=== PATIENT | female | born 2000 ===

== ENCOUNTER 2022-03-09 16:40 | Outpatient (CLI) | payer OTHER ==
[~2022-03-09] VITALS: Ht 160 cm; Wt 74.6 kg
[2022-03-09 16:58] VITALS: BP 122/65
[2022-03-09] MEDS ORDERED: ACET-897 PO (17:03)
[2022-03-09] MEDS ORDERED: TUMS750C5 PO (17:03)
[2022-03-09] MEDS ORDERED: ZYRTTAB8 PO (17:03)
[2022-03-09] MEDS ORDERED: PRENTAB9 PO (17:03)
[2022-03-09 18:03] VITALS: BP 109/60
[2022-03-09] MEDS ORDERED: FLUCONAZOLE 50MG TABLET PO ONE (18:05)
[2022-03-09 18:32] VITALS: BP 117/59
[2022-03-09 20:02] LABS: GC DNA AMPLIFICATION NEGATIVE (NEGATIVE)
== END 2022-03-09 18:30 | disposition home or self-care (01) ==
LOC: M LDO 16:40
PROVIDERS: ATTEND Obstetrics & Gynecology
DX: O23.593 Infection of other part of genital tract in pregnancy, third trimester (principal); Z3A.29 29 weeks gestation of pregnancy; Z88.0 Allergy status to penicillin; Z88.1 Allergy status to other antibiotic agents; Z91.013 Allergy to seafood; Z91.018 Allergy to other foods
CPT/HCPCS: 59025; 76815; 87810; 87850; G0378; G0463

== ENCOUNTER 2022-04-16 12:00 | Outpatient (CLI) | payer OTHER ==
[~2022-04-16] VITALS: Ht 162.6 cm; Wt 76.3 kg
[~2022-04-16 12:00] MED LIST: ACET-897 PO; PRENTAB9 PO; TUMS750C5 PO; ZYRTTAB8 PO
[2022-04-16 12:26] VITALS: BP 116/72
[2022-04-16] MEDS ORDERED: HOME MED LIST COMPLETE! XX SCH (12:30)
== END 2022-04-16 14:05 | disposition home or self-care (01) ==
LOC: M LDO 12:00
PROVIDERS: ATTEND Obstetrics & Gynecology
DX: O46.93 Antepartum hemorrhage, unspecified, third trimester (principal); Z3A.34 34 weeks gestation of pregnancy; Z88.0 Allergy status to penicillin; Z88.1 Allergy status to other antibiotic agents; Z91.013 Allergy to seafood; Z91.018 Allergy to other foods
CPT/HCPCS: 59025; 87086; G0463

== ENCOUNTER 2022-05-05 21:18 | Outpatient (CLI) | payer OTHER ==
[~2022-05-05] VITALS: Ht 160 cm; Wt 78.2 kg
== END 2022-05-05 22:37 | disposition home or self-care (01) ==
LOC: M LDO 21:18
PROVIDERS: ATTEND Obstetrics & Gynecology
DX: O26.893 Other specified pregnancy related conditions, third trimester (principal); N89.8 Other specified noninflammatory disorders of vagina; Z3A.37 37 weeks gestation of pregnancy; O99.820 Streptococcus B carrier state complicating pregnancy
CPT/HCPCS: 59025; G0463

== ENCOUNTER 2022-05-24 12:33 | Outpatient (CLI) | payer OTHER ==
[~2022-05-24] VITALS: Ht 160 cm; Wt 80.3 kg
[2022-05-24 12:59] VITALS: BP 117/65
[2022-05-25] MEDS ORDERED: ACET-897 PO (17:41)
== END 2022-05-24 13:35 | disposition home or self-care (01) ==
LOC: M LDO 12:33
PROVIDERS: ATTEND Advanced Practice Midwife
DX: O47.1 False labor at or after 37 completed weeks of gestation (principal); Z3A.39 39 weeks gestation of pregnancy; Z88.0 Allergy status to penicillin; Z88.1 Allergy status to other antibiotic agents; Z91.013 Allergy to seafood; Z91.018 Allergy to other foods
CPT/HCPCS: 59025; G0378; G0463

== ENCOUNTER 2022-05-25 08:09 | Outpatient (CLI) | payer OTHER ==
[~2022-05-25] VITALS: Ht 160 cm; Wt 79.7 kg
[2022-05-25 08:23] VITALS: BP 112/70
[2022-05-25] MEDS ORDERED: PROMETHAZINE 25MG/ML 1ML VIAL IV ONE (09:25)
[2022-05-25] MEDS ORDERED: BUTORPHANOL 2 MG/ML INJ (J0595) IV ONE (09:25)
[2022-05-25 09:55] LABS: HEMATOCRIT 33.2 % (36.0-47.0); HEMOGLOBIN 10.7 g/dl (12.0-15.5); MEAN CORPUSCULAR HGB CONC 32.2 g/dl (32.0-36.5); MEAN CORPUSCULAR VOLUME 80.8 fl (80.0-96.0); PLATELET COUNT, AUTOMATED 250 10^3/uL (150-450); RED BLOOD COUNT 4.11 10^6/uL (4.00-5.40)
[2022-05-25 10:02] VITALS: BP 113/65
[2022-05-25 10:32] VITALS: BP 98/54
[2022-05-25] MEDS ORDERED: ACET-897 PO (17:41)
== END 2022-05-25 12:00 | disposition home or self-care (01) ==
LOC: M LDO 08:09
PROVIDERS: ATTEND Registered Nurse
DX: O47.1 False labor at or after 37 completed weeks of gestation (principal); Z3A.40 40 weeks gestation of pregnancy; O48.0 Post-term pregnancy; O99.820 Streptococcus B carrier state complicating pregnancy
CPT/HCPCS: 59025; 85027; 86850; 86900; 86901; 96374; 96375; G0378; G0463; J0595; J2550

== ENCOUNTER 2022-05-25 15:01 | Inpatient (IN) | payer OTHER ==
[~2022-05-25] VITALS: Ht 160 cm; Wt 79.7 kg
[2022-05-25] VITALS (12 sets, daily range): BP systolic 103–133; BP diastolic 55–76
[2022-05-25] MEDS ORDERED: MORPHINE 10 MG/ML 1ML VIAL IM ONE (17:00)
[2022-05-25] MEDS ORDERED: MORPHINE 10 MG/ML 1ML VIAL IV ONE (17:00)
[2022-05-25] MEDS ORDERED: PROMETHAZINE 25MG/ML 1ML VIAL IV ONE (17:00)
[2022-05-25] MEDS ORDERED: ACET-897 PO (17:41)
[2022-05-25] MEDS ORDERED: HOME MED LIST COMPLETE! XX SCH (17:45)
[2022-05-25] MEDS ORDERED: ceFAZolin SOD 2 GM in IV 1 EA IV STA (20:34)
[2022-05-25] MEDS ORDERED: METHYLERGONOVINE MALEATE 0.2 MG/ML VIAL (J2210) IM PRN (20:35)
[2022-05-25] MEDS ORDERED: OXYTOCIN INJ 10 UNITS/ML VIAL (J2590) IV PRN (20:35)
[2022-05-25] MEDS ORDERED: OXYTOCIN DRIP 30 UNITS in IV 1 EA IV PRN ×4 (20:35)
[2022-05-25] MEDS ORDERED: LACTATED RINGER'S 1000 ML IV ONE (20:35)
[2022-05-25] MEDS ORDERED: TRANEXAMIC ACID INJection 1,000 MG in NS 100 ML IV PRN (20:35)
[2022-05-25] MEDS: VANCOMYCIN HCL 1,000 MG, VIAL MATE ADAPTER 1 EACH in D5W 250 ML IV SCH (21:04)
[2022-05-25 22:02] LABS: HEMATOCRIT 30.7 % (36.0-47.0); HEMOGLOBIN 9.9 g/dl (12.0-15.5); MEAN CORPUSCULAR HEMOGLOBIN 25.8 pg (27.0-33.0); MEAN CORPUSCULAR HGB CONC 32.2 g/dl (32.0-36.5); MEAN CORPUSCULAR VOLUME 79.9 fl (80.0-96.0); PLATELET COUNT, AUTOMATED 240 10^3/uL (150-450); RED BLOOD COUNT 3.84 10^6/uL (4.00-5.40); WHITE BLOOD COUNT 17.6 10^3/uL (4.0-10.0)
[2022-05-25] MEDS: LR 1,000 ML IV SCH (23:06)
[2022-05-25] MEDS ORDERED: diphenhydrAMINE 50MG/ML VIAL (J1200) IV PRN (23:30)
[2022-05-25] MEDS ORDERED: LR 500 ML IV PRN (23:30)
[2022-05-25] MEDS ORDERED: EPIDURAL/PCA KEYS XX PRN (23:30)
[2022-05-25] MEDS ORDERED: ONDANSETRON 4MG 2ML VIAL IV PRN (23:30)
[2022-05-25] MEDS ORDERED: NALOXONE INJ 0.4MG/1ML VIAL (J2310 PER 1MG) IV PRN (23:30)
[2022-05-25] MEDS ORDERED: ePHEDrine SULFATE 25 MG/5 ML(5MG/ML) SYRINGE IVP PRN (23:30)
[2022-05-25] MEDS: FENTANYL/ROPIVACAINE/NACL BAG 100 ML EPIDURAL SCH (23:46)
[2022-05-26] VITALS (40 sets, daily range): BP systolic 100–134; BP diastolic 50–93
[2022-05-26] MEDS ORDERED: ceFAZolin SOD 1 GM in D5W MINI-BAG PLUS 50 ML IV SCH (04:35)
[2022-05-26] MEDS: LR 1,000 ML IV SCH ×2 (04:40→09:18)
[2022-05-26] MEDS ORDERED: OXYTOCIN DRIP 30 UNITS in IV 1 EA IV SCH (04:55)
[2022-05-26] MEDS: FENTANYL/ROPIVACAINE/NACL BAG 100 ML EPIDURAL SCH (08:32)
[2022-05-26] MEDS: VANCOMYCIN HCL 1,000 MG, VIAL MATE ADAPTER 1 EACH in D5W 250 ML IV SCH (08:44)
[2022-05-26] MEDS ORDERED: VANCOMYCIN HCL 1,000 MG, VIAL MATE ADAPTER 1 EACH in NS 250 ML IV SCH (09:00)
[2022-05-26] MEDS ORDERED: DOCUSATE SODIUM 100MG CAPSULE PO PRN (14:50)
[2022-05-26] MEDS ORDERED: ACETAMINOPHEN 500 MG TAB PO PRN (14:50)
[2022-05-26] MEDS ORDERED: METHYLERGONOVINE MALEATE 0.2 MG TAB PO PRN (14:50)
[2022-05-26] MEDS ORDERED: ACETAMINOPHEN TAB 650MG DOSE (2X325MG) PO PRN (14:50)
[2022-05-26] MEDS ORDERED: IBUPROFEN 600MG TAB PO PRN (14:50)
[2022-05-26] MEDS: IBUPROFEN 800 MG TAB PO PRN (15:30)
[2022-05-26] MEDS: DIBUCAINE 1% OINTMENT 30GM TOP PRN (20:54)
[2022-05-27] MEDS: IBUPROFEN 800 MG TAB PO PRN ×2 (02:01→09:55)
[2022-05-27 05:40] VITALS: BP 125/71
[2022-05-27] MEDS: PRENATAL VITAMINS CHEWABLE TABLET PO SCH (09:54)
[2022-05-27 18:00] VITALS: BP 107/54
[2022-05-27] MEDS: DIBUCAINE 1% OINTMENT 30GM TOP PRN (21:58)
[2022-05-28 06:00] VITALS: BP 90/51
[2022-05-28] MEDS: PRENATAL VITAMINS CHEWABLE TABLET PO SCH (08:32)
[2022-05-28] MEDS ORDERED: MEASLES,MUMPS,RUBELLA VACCINE INJ (MMR-II) (90707) SC.IMMUN ONE (09:00)
[2022-05-28] MEDS ORDERED: ACET1TAB55 PO (09:59)
[2022-05-28] MEDS ORDERED: IBUP-1022 PO (09:59)
== END 2022-05-28 12:25 | disposition home or self-care (01) | DRG 807 ==
LOC: M LDO 15:01 → M LDI 20:37 → M OBS 05-26 17:39
PROVIDERS: ADMIT Obstetrics & Gynecology; ATTEND Registered Nurse
PROC: 10E0XZZ Delivery of Products of Conception, External Approach (ICD-10-PCS; principal; 2022-05-26)
PROC: 10907ZC Drainage of Amniotic Fluid, Therapeutic from Products of Conception, Via Natural or Artificial Opening (ICD-10-PCS; 2022-05-26)
PROC: 0HQ9XZZ Repair Perineum Skin, External Approach (ICD-10-PCS; 2022-05-26)
DX: O63.1 Prolonged second stage (of labor) (principal); Z37.0 Single live birth; Z3A.40 40 weeks gestation of pregnancy; O99.824 Streptococcus B carrier state complicating childbirth; Z88.0 Allergy status to penicillin; Z91.013 Allergy to seafood; Z91.010 Allergy to peanuts; O75.81 Maternal exhaustion complicating labor and delivery; O69.82X0 Labor and delivery complicated by other cord entanglement, without compression, not applicable or unspecified; O70.0 First degree perineal laceration during delivery

== ENCOUNTER 2023-11-21 19:15 | Emergency (ER) | payer OTHER ==
[~2023-11-21] VITALS: Ht 160 cm; Wt 72.3 kg
[~2023-11-21 19:15] MED LIST changes: +ACET1TAB55 PO; +IBUP-1022 PO
[2023-11-21 19:16] VITALS: BP 131/70; TEMP 96.8; O2SAT 99
[2023-11-21 21:03] LABS: BASO # 0.1 10^3/uL (0.0-0.2); BASO % 0.6 % (0.0-1.0); EOS # 0.7 10^3/uL (0.0-0.5); EOS % 5.9 % (0.0-3.0); HEMATOCRIT 37.9 % (36.0-47.0); HEMOGLOBIN 12.5 g/dl (12.0-15.5); LYMPH # 2.2 10^3/uL (1.5-5.0); LYMPH % 18.8 % (24.0-44.0); MONO # 0.7 10^3/uL (0.0-0.8); MONO % 5.7 % (2.0-8.0); NEUTROPHILS % 68.7 % (36.0-66.0); PLATELET COUNT, AUTOMATED 381 10^3/uL (150-450); RED BLOOD COUNT 4.46 10^6/uL (4.00-5.40); WHITE BLOOD COUNT 11.7 10^3/uL (4.0-10.0)
[2023-11-21 21:26] LABS: BLOOD UREA NITROGEN 5 MG/DL (9-23); CALCIUM LEVEL 8.9 MG/DL (8.5-10.1); CARBON DIOXIDE LEVEL 25 MMOL/L (20-31); CHLORIDE LEVEL 106 MMOL/L (98-107); CREATININE FOR GFR 0.57 MG/DL (0.55-1.30); GLOMERULAR FILTRATION RATE > 60.0 (>60); GLUCOSE, FASTING 99 MG/DL (60-100); POTASSIUM SERUM 4.2 MMOL/L (3.5-5.1); SODIUM LEVEL 139 MMOL/L (136-145)
[2023-11-21 21:38] LABS: HCG, SERUM QUANTITATIVE 1521.1 MIU/ML (<4.2)
== END 2023-11-21 23:25 | disposition left against medical advice (07) ==
LOC: M ED 19:15
DX: Z53.21 Procedure and treatment not carried out due to patient leaving prior to being seen by health care provider (principal)